=== PATIENT | male | born 1970 | race Two or more races ===

== ENCOUNTER 2016-08-26 18:57 | Emergency (ER) | payer MEDICAID ==
[~2016-08-26] VITALS: Ht 175.3 cm; Wt 95.3 kg
[~2016-08-26 18:57] MED LIST: IBUPROFEN600 MG ORAL; IBUPROFEN800 MG ORAL; NORCO 5-325 TA1 EACH ORAL; PREDNISONE20 MG ORAL; TRAMADOL HCL50 MG ORAL; VALIUM5 MG ORAL
[2016-08-26] MEDS ORDERED: Norco 7.5mg/325mg tab ORAL ONE (20:00)
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
[2016-08-26] MEDS ORDERED: IBUPROFEN600 MG ORAL (20:14)
[2016-08-26] MEDS ORDERED: BACITRACIN-P28.35 GM TP (20:14)
[2016-08-26] MEDS ORDERED: Bacitracin Oint UD TOPIC ONE (20:15)
[2016-08-26] MEDS ORDERED: NORCO 5-325 TA1 EACH ORAL (20:15)
[2016-08-26 20:43] VITALS: BP 153/93
--- NOTE | 2016-08-28 08:09 | Diagnostic Imaging Report ---
Indication: Pain Comparison: None Findings: Right rib series performed with 5 views. No acute fracture is identified. The right lung is clear. No pneumothorax or effusion identified. Impression: Negative right rib series
== END 2016-08-26 20:43 | disposition home or self-care (01) ==
LOC: EMR 19:17
DX: S20.211A Contusion of right front wall of thorax, initial encounter (principal); S50.811A Abrasion of right forearm, initial encounter; W05.1XXA Fall from non-moving nonmotorized scooter, initial encounter; Y92.9 Unspecified place or not applicable; Y99.8 Other external cause status
CPT/HCPCS: 99284

== ENCOUNTER 2016-11-22 20:41 | Inpatient (IN) | payer MEDICAID ==
[~2016-11-22] VITALS: Ht 177.8 cm; Wt 98.9 kg
[~2016-11-22 20:41] MED LIST changes: +BACITRACIN-P28.35 GM TP
[2016-11-22 21:00] VITALS: BP 146/97
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
[2016-11-22 21:44] LABS: BASOPHILS % (AUTO) 1.2 % (0.0-2.0); EOSINOPHILS % (AUTO) 1.8 % (0.0-3.0); LYMPHOCYTES % (AUTO) 26.2 % (20.0-45.0); MEAN CORPUSCULAR HEMOGLOBIN 29.3 PG (27.0-31.0); MEAN CORPUSCULAR HGB CONC 34.5 G/DL (32.0-36.0); MEAN CORPUSCULAR VOLUME 85 FL (80-99); MONOCYTES % (AUTO) 8.3 % (1.0-10.0); NEUTROPHILS % (AUTO) 62.6 % (45.0-75.0); PLATELET COUNT 153 K/UL (150-450); RED BLOOD COUNT 4.91 M/UL (4.70-6.10); RED CELL DISTRIBUTION WIDTH 12.2 % (11.6-14.8); WHITE BLOOD COUNT 7.8 K/UL (4.8-10.8)
[2016-11-22 22:01] LABS: PROTHROMBIN TIME 10.7 SEC (9.30-11.50)
[2016-11-22 22:07] LABS: TROPONIN I < 0.30 ng/mL (<=0.30)
[2016-11-22 22:10] LABS: ALANINE AMINOTRANSFERASE 15 U/L (3-41); ALBUMIN/GLOBULIN RATIO 1.6 (1.0-2.7); ANION GAP 14 (5-15); ASPARTATE AMINO TRANSFERASE 16 U/L (5-40); CALCIUM 8.7 mg/dL (8.6-10.2); CARBON DIOXIDE 24 mEQ/L (20-30); CHLORIDE 103 mEQ/L (98-107); CREATININE 0.9 mg/dL (0.7-1.2); GLOMERULAR FILTRATION RATE > 60 mL/min (>60); HEMOLYSIS 11; POTASSIUM 3.7 mEQ/L (3.4-4.9); SODIUM 141 mEQ/L (135-145)
[2016-11-22 22:20] LABS: CKMB 1.7 ng/mL (< 6.7)
[2016-11-22 23:25] VITALS: BP 125/72
[2016-11-22] MEDS ORDERED: Nitroglycerin Subl 0.4mg tab (Bottle Of 25) SL PRN (23:30)
[2016-11-22] MEDS ORDERED: Mylanta II UD 30ml ORAL PRN (23:30)
[2016-11-22] MEDS ORDERED: Milk of Magnesia 30ml Ud ORAL PRN (23:30)
[2016-11-22] MEDS ORDERED: Morphine Sulfate 2mg/ml Inj IVP PRN (23:30)
[2016-11-22] MEDS ORDERED: Morphine Sulfate 4mg/ml Inj IVP PRN (23:30)
[2016-11-22] MEDS ORDERED: Zolpidem 5mg tab ORAL PRN (23:30)
[2016-11-22] MEDS ORDERED: Miralax 17gm pkt ORAL PRN (23:30)
[2016-11-23] VITALS (7 sets, daily range): BP systolic 101–149; BP diastolic 67–86
[2016-11-23 07:16] LABS: EOSINOPHILS % (AUTO) 2.9 % (0.0-3.0); LYMPHOCYTES % (AUTO) 35.2 % (20.0-45.0); MEAN CORPUSCULAR HEMOGLOBIN 28.8 PG (27.0-31.0); MEAN CORPUSCULAR HGB CONC 33.5 G/DL (32.0-36.0); MEAN CORPUSCULAR VOLUME 86 FL (80-99); MEAN PLATELET VOLUME 9.5 FL (6.5-10.1); MONOCYTES % (AUTO) 7.9 % (1.0-10.0); NEUTROPHILS % (AUTO) 53.1 % (45.0-75.0); PLATELET COUNT 142 K/UL (150-450); RED BLOOD COUNT 4.99 M/UL (4.70-6.10); RED CELL DISTRIBUTION WIDTH 11.7 % (11.6-14.8); WHITE BLOOD COUNT 6.1 K/UL (4.8-10.8)
--- NOTE | 2016-11-23 07:51 | History and Physical ---
History of Present Illness General Date patient seen: Nov 23, 2016 Time patient seen: 07:51 Reason for Hospitalization: Chest Pain Present Illness HPI 46-year-old male who presented after increased chest pain which began approximately 40 minutes ago pain is described as a pressure type sensation. This was onset during exertion. Patient states he had similar chest pain 2 years ago and underwent stress test and cath at [facility] which was negative. Patient state he is former smoker--quit 2 years ago Patient denied changes to pain with position. Pain has now resolved. Allergies: Coded Allergies: No Known Allergies (Unverified , 01/31/13) Medication History Scheduled Bacitracin/Polymyxin B Sulfate (Bacitracin-Polymyxin Ointment), 1 APPLIC TP BID Ibuprofen* (Motrin*), 600 MG ORAL THREE TIMES A DAY Scheduled PRN Diazepam* (Valium*), 5 MG ORAL TID PRN for For Anxiety Hydrocodone Bit/Acetaminophen 5-325* (Hixson 5-325*), 1 TAB ORAL Q6H PRN for For Pain Hydrocodone Bit/Acetaminophen 5-325* (Hixson 5-325*), 1 TAB ORAL Q6H PRN for For Pain Ibuprofen* (Motrin*), 600 MG ORAL Q8H PRN for For Pain Tramadol Hcl* (Ultram*), 50 MG ORAL Q6H PRN for For Pain Patient History Healthcare decision maker Resuscitation status Full Code Advanced Directive on File No Past Medical/Surgical History Past Medical/Surgical History: (1) Chest pain Family History Family History: Patient reports no known family medical history. Social History Social History: (1) Former tobacco use Review of Systems Constitutional: Reports: no symptoms Eye: Reports: no symptoms ENT: Reports: no symptoms Respiratory: Reports: no symptoms Cardiovascular: Reports: chest pain Gastrointestinal: Reports: no symptoms Genitourinary: Reports: no symptoms Musculoskeletal: Reports: no symptoms Skin: Reports: no symptoms Psychiatric: Reports: no symptoms Neurological: Reports: no symptoms Endocrine: Reports: no symptoms Hematologic/Lymphatic: Reports: no symptoms Physical Exam Physical Exam Narrative General: alert, cooperative, no distress, appears stated age Head: normocephalic, without obvious abnormality, atraumatic Eyes: conjunctivae/corneas clear. PERRL, EOM's intact Throat: lips, mucosa, and tongue normal. MMM Neck: supple, symmetrical, trachea midline, and no JVD Lungs: clear to auscultation bilaterally Heart: regular rate and rhythm, S1, S2 normal, no murmur, click, rub or gallop Abdomen: soft, non-tender, non-distended, bowel sounds normal; no masses or organomegaly Extremities: extremities normal, atraumatic, no cyanosis or edema Pulses: 2+ and symmetric Skin: skin color, texture, turgor normal; no rashes or lesions Neurologic: grossly normal, no focal deficits Last 24 Hour Vital Signs Date Time Temp Pulse Resp B/P Pulse Ox O2 Delivery O2 Flow Rate FiO2 11/23/16 04:00 98.6 53 18 101/71 99 Room Air 11/23/16 04:00 45 11/23/16 00:00 97.2 53 18 140/77 99 Room Air 11/23/16 00:00 67 11/22/16 23:46 74 16 125/72 98 Room Air 11/22/16 23:25 97.1 74 16 125/72 98 Room Air 11/22/16 21:00 71 15 Room Air 11/22/16 21:00 99.0 63 15 146/97 97 Room Air 11/22/16 20:44 99.0 71 15 146/97 97 Room Air Intake and Output 11/22/16 11/23/16 19:00 07:00 Intake Total 400 ml Balance 400 ml Intake Oral 400 ml # Voids 2 Laboratory Tests Test 11/22/16 21:00 11/22/16 21:30 11/23/16 06:30 White Blood Count 7.8 K/UL (4.8-10.8) 6.1 K/UL (4.8-10.8) Red Blood Count 4.91 M/UL (4.70-6.10) 4.99 M/UL (4.70-6.10) Hemoglobin 14.4 G/DL (14.2-18.0) 14.4 G/DL (14.2-18.0) Hematocrit 41.8 % (42.0-52.0) L 42.9 % (42.0-52.0) Mean Corpuscular Volume 85 FL (80-99) 86 FL (80-99) Mean Corpuscular Hemoglobin 29.3 PG (27.0-31.0) 28.8 PG (27.0-31.0) Mean Corpuscular Hemoglobin Concent 34.5 G/DL (32.0-36.0) 33.5 G/DL (32.0-36.0) Red Cell Distribution Width 12.2 % (11.6-14.8) 11.7 % (11.6-14.8) Platelet Count 153 K/UL (150-450) 142 K/UL (150-450) L Mean Platelet Volume 10.0 FL (6.5-10.1) 9.5 FL (6.5-10.1) Neutrophils (%) (Auto) 62.6 % (45.0-75.0) 53.1 % (45.0-75.0) Lymphocytes (%) (Auto) 26.2 % (20.0-45.0) 35.2 % (20.0-45.0) Monocytes (%) (Auto) 8.3 % (1.0-10.0) 7.9 % (1.0-10.0) Eosinophils (%) (Auto) 1.8 % (0.0-3.0) 2.9 % (0.0-3.0) Basophils (%) (Auto) 1.2 % (0.0-2.0) 1.0 % (0.0-2.0) Prothrombin Time 10.7 SEC (9.30-11.50) Prothromb Time International Ratio 1.0 (0.9-1.1) Activated Partial Thromboplast Time 28 SEC (23-33) D-Dimer 121 ng/mL (<500) Sodium Level 141 mEQ/L (135-145) Pending Potassium Level 3.7 mEQ/L (3.4-4.9) Pending Chloride Level 103 mEQ/L (98-107) Pending Carbon Dioxide Level 24 mEQ/L (20-30) Pending Anion Gap 14 (5-15) Blood Urea Nitrogen 18 mg/dL (7-23) Pending Creatinine 0.9 mg/dL (0.7-1.2) Pending Estimat Glomerular Filtration Rate > 60 mL/min (>60) Pending Glucose Level 96 mg/dL (74-106) Pending Calcium Level 8.7 mg/dL (8.6-10.2) Pending Total Bilirubin 0.2 mg/dL (0.0-1.2) Aspartate Amino Transf (AST/SGOT) 16 U/L (5-40) Alanine Aminotransferase (ALT/SGPT) 15 U/L (3-41) Alkaline Phosphatase 42 U/L (40-129) Total Creatine Kinase 123 U/L (38-174) Creatine Kinase MB 1.7 ng/mL (< 6.7) Creatine Kinase MB Relative Index 1.3 Troponin I < 0.30 ng/mL (<=0.30) Pending Pro-B-Type Natriuretic Peptide 27 pg/mL (0-125) Total Protein 7.0 g/dL (6.6-8.7) Albumin 4.4 g/dL (3.5-5.2) Globulin 2.6 g/dL Albumin/Globulin Ratio 1.6 (1.0-2.7) Urine Opiates Screen Negative (NEGATIVE) Urine Barbiturates Screen Negative (NEGATIVE) Phencyclidine (PCP) Screen Negative (NEGATIVE) Urine Amphetamines Screen Negative (NEGATIVE) Urine Benzodiazepines Screen Negative (NEGATIVE) Urine Cocaine Screen Negative (NEGATIVE) Urine Marijuana (THC) Screen Negative (NEGATIVE) Hemoglobin A1c Pending Magnesium Level Pending Triglycerides Level Pending Cholesterol Level Pending LDL Cholesterol Pending HDL Cholesterol Pending Cholesterol/HDL Ratio Pending Thyroid Stimulating Hormone (TSH) Pending Height (Feet): 5 Height (Inches): 10.00 Weight (Pounds): 218 Medications Current Medications Medications (Trade) Dose Ordered Sig/Carlos Route PRN Reason Start Time Stop Time Status Last Admin Dose Admin Acetaminophen (Tylenol) 650 mg Q4H PRN ORAL Mild Pain (Pain Scale 1-3) 11/22/16 23:30 12/22/16 23:29 Al Hydroxide/Mg Hydroxide (Mylanta II) 30 ml Q6H PRN ORAL dyspepsia 11/22/16 23:30 12/22/16 23:29 Aspirin (ASA) 81 mg DAILY ORAL 11/23/16 09:00 12/23/16 08:59 Atorvastatin Calcium (Lipitor) 80 mg BEDTIME ORAL 11/23/16 21:00 12/23/16 20:59 Bisacodyl (Dulcolax) 10 mg DAILYPRN PRN RECTAL Constipation 11/22/16 23:30 12/22/16 23:29 Dextrose (Dextrose 50%) STAT PRN IV Hypoglycemia 11/22/16 23:30 12/22/16 23:29 Diphenhydramine HCl (Benadryl) 25 mg Q6H PRN ORAL Itching/Pruritis 11/22/16 23:30 12/22/16 23:29 Docusate Sodium (Colace) 100 mg EVERY 12 HOURS ORAL 11/23/16 09:00 12/23/16 08:59 Heparin Sodium (Porcine) (Heparin 5000 units/ml) 5,000 units EVERY 12 HOURS SUBQ 11/23/16 09:00 12/23/16 08:59 Magnesium Hydroxide (Mom) 30 ml HSPRN PRN ORAL Constipation 11/22/16 23:30 12/22/16 23:29 Morphine Sulfate (Morphine Sulfate) 2 mg Q4H PRN IVP Moderate Pain (Pain Scale 4-6) 11/22/16 23:30 11/29/16 23:29 Morphine Sulfate (Morphine Sulfate) 4 mg Q4H PRN IVP Severe Pain (Pain Scale 7-10) 11/22/16 23:30 11/29/16 23:29 Nitroglycerin (Ntg) 0.4 mg Q5M PRN SL Prn Chest Pain 11/22/16 23:30 12/22/16 23:29 Ondansetron HCl (Zofran) 4 mg Q6H PRN IVP Nausea & Vomiting 11/22/16 23:30 12/22/16 23:29 Polyethylene Glycol (Miralax) 17 gm DAILYPRN PRN ORAL Constipation 11/22/16 23:30 12/22/16 23:29 Zolpidem Tartrate (Ambien) 5 mg DAILYPRN PRN ORAL Insomnia 11/22/16 23:30 12/22/16 23:29 Assessment/Plan Problem List: (1) Chest pain ICD Codes: R07.9 - Chest pain, unspecified SNOMED: 74376880 (2) Bradycardia ICD Codes: R00.1 - Bradycardia, unspecified SNOMED: 73622955 Status: stable Assessment/Plan Admit to tele Cardiology consulted Trend trop/EKG Check TTE Consider inpatient vs outpatient stress test per cardiology Check TSH, A1C, lipid panel Pain control Supportive care DVT ppx FULL CODE Dante Pineda M.D. Nov 23, 2016 07:51
[2016-11-23 08:01] LABS: TROPONIN I < 0.30 ng/mL (<=0.30)
[2016-11-23 08:03] LABS: ANION GAP 10 (5-15); CALCIUM 8.6 mg/dL (8.6-10.2); CARBON DIOXIDE 27 mEQ/L (20-30); CHLORIDE 102 mEQ/L (98-107); CHOLESTEROL 181 mg/dL (< 200); CHOLESTEROL/HDL RATIO 5.7 (3.3-4.4); CREATININE 0.8 mg/dL (0.7-1.2); GLOMERULAR FILTRATION RATE > 60 mL/min (>60); HEMOLYSIS 16; LDL CHOLESTEROL (CALC.) 123 mg/dL (60-99); MAGNESIUM 2.1 mg/dL (1.7-2.5); POTASSIUM 3.6 mEQ/L (3.4-4.9); SODIUM 139 mEQ/L (135-145)
[2016-11-23] MEDS: Aspirin Baby 81mg ORAL SCH (08:41)
[2016-11-23] MEDS: Docusate 100mg cap ORAL SCH ×2 (08:41→21:48)
[2016-11-23] MEDS: Heparin 5000 units/ml inj SUBQ SCH ×2 (08:42→21:00)
[2016-11-23 10:43] LABS: TROPONIN I < 0.30 ng/mL (<=0.30)
--- NOTE | 2016-11-23 10:43 | Diagnostic Imaging Report ---
Indication: Dyspnea Comparison: None A single view chest radiograph was obtained. Findings: Cardiomediastinal appearance is within normal limits for age. Pulmonary vascularity is appropriate. The diaphragmatic contour is smooth and costophrenic angles are sharp. No pleural effusions are identified. The bones are unremarkable. Impression: No acute findings
--- NOTE | 2016-11-23 16:34 | Cardiac Electrophysiology PN ---
Subjective Subjective [id number]. Stress test in am. Cath at [facility] 2 years ago was negative. Objective Last 24 Hour Vital Signs Date Time Temp Pulse Resp B/P Pulse Ox O2 Delivery O2 Flow Rate FiO2 11/23/16 16:00 97.5 55 18 120/68 98 Room Air 11/23/16 12:02 97.9 57 18 122/67 98 Room Air 11/23/16 08:00 98.2 61 18 111/75 99 Room Air 11/23/16 04:00 98.6 53 18 101/71 99 Room Air 11/23/16 04:00 45 11/23/16 00:00 97.2 53 18 140/77 99 Room Air 11/23/16 00:00 67 11/22/16 23:46 74 16 125/72 98 Room Air 11/22/16 23:25 97.1 74 16 125/72 98 Room Air 11/22/16 21:00 71 15 Room Air 11/22/16 21:00 99.0 63 15 146/97 97 Room Air 11/22/16 20:44 99.0 71 15 146/97 97 Room Air Intake and Output 11/22/16 11/23/16 19:00 07:00 Intake Total 400 ml Balance 400 ml Intake Oral 400 ml # Voids 2 Laboratory Tests Test 11/22/16 21:00 11/22/16 21:30 11/23/16 06:30 11/23/16 10:00 White Blood Count 7.8 K/UL (4.8-10.8) 6.1 K/UL (4.8-10.8) Red Blood Count 4.91 M/UL (4.70-6.10) 4.99 M/UL (4.70-6.10) Hemoglobin 14.4 G/DL (14.2-18.0) 14.4 G/DL (14.2-18.0) Hematocrit 41.8 % (42.0-52.0) L 42.9 % (42.0-52.0) Mean Corpuscular Volume 85 FL (80-99) 86 FL (80-99) Mean Corpuscular Hemoglobin 29.3 PG (27.0-31.0) 28.8 PG (27.0-31.0) Mean Corpuscular Hemoglobin Concent 34.5 G/DL (32.0-36.0) 33.5 G/DL (32.0-36.0) Red Cell Distribution Width 12.2 % (11.6-14.8) 11.7 % (11.6-14.8) Platelet Count 153 K/UL (150-450) 142 K/UL (150-450) L Mean Platelet Volume 10.0 FL (6.5-10.1) 9.5 FL (6.5-10.1) Neutrophils (%) (Auto) 62.6 % (45.0-75.0) 53.1 % (45.0-75.0) Lymphocytes (%) (Auto) 26.2 % (20.0-45.0) 35.2 % (20.0-45.0) Monocytes (%) (Auto) 8.3 % (1.0-10.0) 7.9 % (1.0-10.0) Eosinophils (%) (Auto) 1.8 % (0.0-3.0) 2.9 % (0.0-3.0) Basophils (%) (Auto) 1.2 % (0.0-2.0) 1.0 % (0.0-2.0) Prothrombin Time 10.7 SEC (9.30-11.50) Prothromb Time International Ratio 1.0 (0.9-1.1) Activated Partial Thromboplast Time 28 SEC (23-33) D-Dimer 121 ng/mL (<500) Sodium Level 141 mEQ/L (135-145) 139 mEQ/L (135-145) Potassium Level 3.7 mEQ/L (3.4-4.9) 3.6 mEQ/L (3.4-4.9) Chloride Level 103 mEQ/L (98-107) 102 mEQ/L (98-107) Carbon Dioxide Level 24 mEQ/L (20-30) 27 mEQ/L (20-30) Anion Gap 14 (5-15) 10 (5-15) Blood Urea Nitrogen 18 mg/dL (7-23) 13 mg/dL (7-23) Creatinine 0.9 mg/dL (0.7-1.2) 0.8 mg/dL (0.7-1.2) Estimat Glomerular Filtration Rate > 60 mL/min (>60) > 60 mL/min (>60) Glucose Level 96 mg/dL (74-106) 100 mg/dL (74-106) Calcium Level 8.7 mg/dL (8.6-10.2) 8.6 mg/dL (8.6-10.2) Total Bilirubin 0.2 mg/dL (0.0-1.2) Aspartate Amino Transf (AST/SGOT) 16 U/L (5-40) Alanine Aminotransferase (ALT/SGPT) 15 U/L (3-41) Alkaline Phosphatase 42 U/L (40-129) Total Creatine Kinase 123 U/L (38-174) Creatine Kinase MB 1.7 ng/mL (< 6.7) Creatine Kinase MB Relative Index 1.3 Troponin I < 0.30 ng/mL (<=0.30) < 0.30 ng/mL (<=0.30) < 0.30 ng/mL (<=0.30) Pro-B-Type Natriuretic Peptide 27 pg/mL (0-125) Total Protein 7.0 g/dL (6.6-8.7) Albumin 4.4 g/dL (3.5-5.2) Globulin 2.6 g/dL Albumin/Globulin Ratio 1.6 (1.0-2.7) Urine Opiates Screen Negative (NEGATIVE) Urine Barbiturates Screen Negative (NEGATIVE) Phencyclidine (PCP) Screen Negative (NEGATIVE) Urine Amphetamines Screen Negative (NEGATIVE) Urine Benzodiazepines Screen Negative (NEGATIVE) Urine Cocaine Screen Negative (NEGATIVE) Urine Marijuana (THC) Screen Negative (NEGATIVE) Hemoglobin A1c 5.0 % (< 6.0) Magnesium Level 2.1 mg/dL (1.7-2.5) Triglycerides Level 129 mg/dL (< 150) Cholesterol Level 181 mg/dL (< 200) LDL Cholesterol 123 mg/dL (60-99) H HDL Cholesterol 32 mg/dL (> 60) Cholesterol/HDL Ratio 5.7 (3.3-4.4) H Thyroid Stimulating Hormone (TSH) 2.380 uIU/mL (0.300-4.500) SUNNY ORTEGA Nov 23, 2016 16:34
[2016-11-23] MEDS ORDERED: Atorvastatin 80mg tab ORAL SCH (21:00)
--- NOTE | 2016-11-24 02:15 | Consultation ---
DATE OF CONSULTATION: 11/23/2016 CARDIOLOGY CONSULTATION CONSULTING PHYSICIAN: José Henao M.D. REFERRING PHYSICIAN: Nahed Verdin M.D. REASON FOR CONSULTATION: Chest pain. HISTORY OF PRESENT ILLNESS: The patient is a 46-year-old gentleman with history of troponin elevation about two years ago for which he underwent cardiac catheterization at [facility] from his wrist that reportedly was negative. The patient does not have any further cardiology followup. The patient came to the emergency room for an episode of chest pain that was severe for him. The patient's EKG however did not show any acute ischemic changes and troponin was negative. He is disease free. Cardiology consultation was obtained for further evaluation and management. REVIEW OF SYSTEMS: Review of systems was performed and was negative other than what was mentioned in the history of present illness. PAST MEDICAL HISTORY: As mentioned above. FAMILY HISTORY: Noncontributory. SOCIAL HISTORY: Does not smoke or drink alcohol. PHYSICAL EXAMINATION: VITAL SIGNS: Blood pressure is 120/60, pulse is 65, respirations 18, and he is afebrile. HEAD AND NECK: Showed no JVD or carotid bruits. LUNGS: Clear. CARDIOVASCULAR: Shows regular S1 and S2. Mildly bradycardic. ABDOMEN: Soft. EXTREMITIES: No pitting edema. LABORATORY DATA: Showed white count of 6.1, hemoglobin of 14.4, hematocrit 43, and platelet count 142,000. Sodium is 139, potassium 3.6, BUN of 13.8, and glucose of 100. Troponin is negative x3. ASSESSMENT AND PLAN: 1. Atypical chest pain. EKG is negative. The patient was ruled out for myocardial infarction. His D-dimer is also negative making highly unlikely. We will get an echocardiogram and schedule the patient for a treadmill stress test in the morning. 2. Mild bradycardia. We will watch the patient on telemetry. Check thyroid function test. 3. The patient has hyperlipidemia, on Lipitor. Thank very much, Dr. Verdin, for allowing me to participate in the care of this patient. Please do not hesitate to contact me for any questions regarding my evaluation. José Henao M.D. DR: Donna JOB#: [id number] CC:
[2016-11-24 08:00] VITALS: BP 120/68
[2016-11-24] MEDS: Aspirin Baby 81mg ORAL SCH (08:51)
[2016-11-24] MEDS: Docusate 100mg cap ORAL SCH (08:51)
[2016-11-24] MEDS: Heparin 5000 units/ml inj SUBQ SCH (08:52)
[2016-11-24] MEDS ORDERED: ATORVASTATIN CA40 MG ORAL (10:52)
[2016-11-24] MEDS ORDERED: Adenosine Inj IVP ONE (12:20)
--- NOTE | 2016-11-24 14:59 | Diagnostic Imaging Report ---
Indications: Chest pain Technique: Single day single isotope protocol utilized. Initially, resting images obtained using IV administration 10.2 millicuries 99M technetium Myoview. Subsequently, patient underwent adenosine stress testing. See cardiology report for details. During adenosine infusion, IV administration 32.8 mCi 99 M technetium Myoview. SPECT and planar images obtained. SPECT images gated to 8 phases of the cardiac cycle were also obtained, and reformatted into cine images for evaluation of ejection fraction. Comparison: None Findings: Per cardiology report, patient experienced dizziness and shortness of breath. Per cardiology report, resting EKG demonstrates normal sinus rhythm no ST-T wave changes were noted during infusion. Imaging demonstrates no fixed nor reversible post stress perfusion defect.. Calculated post stress ejection fraction % 70. No evidence of focal wall motion abnormality Impression: Nonischemic clinical response to pharmacologic stress, per cardiology report Nonischemic electrocardiographic response to pharmacologic stress, per cardiology report No imaging findings to suggest ischemia, at level of stress achieved. Calculated post stress ejection fraction 70%
--- NOTE | 2016-11-24 17:20 | Cardiac Electrophysiology PN ---
Assessment/Plan Assessment/Plan 1. Atypical chest pain. EKG is negative. The patient was ruled out for myocardial infarction. His D-dimer is also negative. Echocardiogram showed EF 55%. Adenosine Cardiolite showed no ischemia. 2. Mild bradycardia. Resolved 3. Hyperlipidemia, on Lipitor. BANDAR RN OK to DC from cardiac stand point Subjective Subjective Patient signed out AMA but reported back to his room an hour later. Comfortbale in NAD. Nuclear stress test was negative today. Objective Last 24 Hour Vital Signs Date Time Temp Pulse Resp B/P Pulse Ox O2 Delivery O2 Flow Rate FiO2 11/24/16 08:00 97.5 99 19 120/68 99 Room Air 11/24/16 04:00 53 11/24/16 00:00 68 11/23/16 23:29 97.3 79 20 149/86 97 Room Air 11/23/16 20:10 96.3 64 20 122/67 99 Room Air 11/23/16 20:00 63 Intake and Output 11/23/16 11/24/16 19:00 07:00 Intake Total 1300 ml Balance 1300 ml Intake Oral 1300 ml # Voids 4 3 Objective HEAD AND NECK: Showed no JVD or carotid bruits. LUNGS: Clear. CARDIOVASCULAR: Shows regular S1 and S2. Mildly bradycardic. ABDOMEN: Soft. EXTREMITIES: No pitting edema. SUNNY ORTEGA Nov 24, 2016 17:20
--- NOTE | 2016-11-27 14:02 | Cardiology Report ---
APPROVED REPORT EXAM: Two-dimensional and M-mode echocardiogram with Doppler and color Doppler. INDICATION Chest Pain M-Mode DIMENSIONS IVSd1.1 (0.7-1.1cm)Left Atrium (MM)3.8 (1.6-4.0cm) LVDd4.2 (3.5-5.6cm)Aortic Root3.3 (2.0-3.7cm) PWd1.3 (0.7-1.1cm)Aortic Cusp Exc.2.0 (1.5-2.0cm) LVDs1.8 (2.5-4.0cm) PWs1.7 cm Normal left ventricular chamber size, systolic function and wall motion. Left ventricular ejection fraction estimated to be 55 %. No evidence of ventricular hypertrophy. No evidence of pericardial fat or effusion. All other cardiac chamber sizes are within normal limits. Focal aortic valve sclerosis with adequate cusp excursion. Thickened mitral valve leaflets with normal excursion. Mitral annulus and aortic root calcification. Pulmonic valve not well visualized. Normal tricuspid valve structure. IVC dilated at 1.7 cm with physiologic collapse. A color flow and spectral Doppler study was performed and revealed: No aortic regurgitation. No mitral regurgitation. Mitral inflow velocities indicates normal left ventricular diastolic function. No tricuspid regurgitation. No pulmonic regurgitation present.
--- NOTE | 2016-11-28 17:18 | Discharge Summary ---
Discharge Summary Hospital Course Date of Admission Nov 22, 2016 at 22:25 Date of Discharge Nov 24, 2016 at 15:20 Admitting Diagnosis chest pain r/o ACS Reason for Hospitalization: r/o ACS HPI 46-year-old male who presented after increased chest pain which began approximately 40 minutes ago pain is described as a pressure type sensation. This was onset during exertion. Patient states he had similar chest pain 2 years ago and underwent stress test and cath at [facility] which was negative. Patient state he is former smoker--quit 2 years ago Patient denied changes to pain with position. Pain has now resolved. Consultations Cardiology Hospital Course P was admitted to [facility] and ruled out for ACS with serial trop/EKG. Pt was seen by cardiology. Stress test unremarkable. Pt was discharged home w/ outpatient f/ u. Discharge Medications New Medications: Atorvastatin Calcium* (Atorvastatin Calcium*) 40 Mg Tablet 40 MG ORAL BEDTIME for 30 Days, TAB Continued Medications: Bacitracin/Polymyxin B Sulfate (Bacitracin-Polymyxin Ointment) 28.35 Gm Oint...g. 1 APPLIC TP BID, #28.3 GM Hydrocodone Bit/Acetaminophen 5-325* ([place] 5-325*) 1 Each Tablet 1 TAB ORAL Q6H PRN for For Pain, #2 TAB 0 Refills Tramadol Hcl* (Ultram*) 50 Mg Tablet 50 MG ORAL Q6H PRN for For Pain, #30 TAB 0 Refills Discontinued Medications: Hydrocodone Bit/Acetaminophen 5-325* (Lang[place]ne 5-325*) 1 Each Tablet 1 TAB ORAL Q6H PRN for For Pain, #20 TAB Ibuprofen* (Motrin*) 600 Mg Tablet 600 MG ORAL Q8H PRN for For Pain, #30 TAB Ibuprofen* (Motrin*) 600 Mg Tablet 600 MG ORAL THREE TIMES A DAY, #24 TAB 0 Refills Discharge Condition Upon Discharge: stable Discharge Disposition Patient was discharged to Home (01) Discharge Diagnoses: (1) HLD (hyperlipidemia) (2) Chest pain, atypical Dante Pineda M.D. Nov 28, 2016 17:18
--- NOTE | 2016-11-28 19:07 | Cardiology Report ---
APPROVED REPORT EKG Measurement Heart [id number] Normal sinus rhythm Normal ECG
== END 2016-11-24 15:20 | disposition home or self-care (01) | DRG 203 ==
LOC: EMR 21:25 → 2E 22:25 → EDBEDREQ 22:42
DX: R07.89 Other chest pain (principal); R00.1 Bradycardia, unspecified; E78.5 Hyperlipidemia, unspecified; Z87.891 Personal history of nicotine dependence
CPT/HCPCS: 36415; 71010; 78452; 80048; 80053; 80061; 80300; 82550; 82553; 83036; 83735; 83880; 84443; 84484; 85025; 85379; 85610; 85730; 93005; 93017; 93306

== ENCOUNTER 2017-12-04 19:48 | Emergency (ER) | payer MEDICAID ==
[~2017-12-04] VITALS: Ht 177.8 cm; Wt 104.3 kg
[~2017-12-04 19:48] MED LIST changes: +ATORVASTATIN CA40 MG ORAL
[2017-12-04 20:16] VITALS: BP 156/95
[2017-12-04] MEDS ORDERED: CORTISPORIN EAR10 ML RIGHT EAR (20:35)
--- NOTE | 2017-12-04 20:35 | Emergency Room Report ---
History of Present Illness General Chief Complaint: Earache Source: Patient Present Illness HPI 47-year-old male patient presents ER complaining of earache 1 day. Reports right ear pain 1 day. Reports went swimming recently a few days ago. Denies fever, chest pain, shortness of breath. Denies Similar symptoms. Denies decreased hearing. Denies sore throat, cough, chest pain. Allergies: Coded Allergies: No Known Allergies (Unverified , 01/31/13) Patient History Past Medical History: see triage record Reviewed Nursing Documentation: PMH: Agreed; PSxH: Agreed Nursing Documentation-PMH Past Medical History: No History, Except For Hx Cardiac Problems: Yes Review of Systems All Other Systems: negative except mentioned in HPI Physical Exam Vital Signs Date Time Temp Pulse Resp B/P (MAP) Pulse Ox O2 Delivery O2 Flow Rate FiO2 12/04/17 19:57 98.3 65 18 156/95 94 Room Air 98.2 Sp02 EP Interpretation: reviewed, normal General Appearance: well appearing, no apparent distress, alert, GCS 15, non- toxic Head: normocephalic, atraumatic Eyes: bilateral eye normal inspection, bilateral eye PERRL ENT: hearing grossly normal, normal pharynx, no angioedema, normal voice, TMs + canals normal - left ear, uvula midline, moist mucus membranes, other - right ear canal erythematous and edematous, TM normal, no perforation, nonerythematous , no effusion Neck: full range of motion Respiratory: lungs clear, normal breath sounds, no rhonchi, no respiratory distress, no accessory muscle use, no wheezing, speaking full sentences Cardiovascular #1: regular rate, rhythm, no edema Musculoskeletal: back normal, digits/nails normal, gait/station normal, normal range of motion, non-tender Neurologic: alert, oriented x3, responsive, motor strength/tone normal, sensory intact Skin: no rash Lymphatic: no adenopathy Medical Decision Making PA Attestation Dr. Morris is my supervising Physician whom patient management has been discussed with. Diagnostic Impression: Primary Impression: Otitis externa ER Course Pt presents to ED c/o ear pain. DDX considered but are not limited to rhinitis, sinusitis, otitis media, otitis externa, cellulitis, mastoiditis, cerumen impaction. Low suspicion for mastoiditis, no swelling or erythema noted posterior to ear, no TTP. VITAL SIGNS are WNL, patient is afebrile. ER course: Physical exam consistent with obvious otitis externa of the right ear. TM visible, does not need ear wick placement. Will provide eardrops. Avoid swimming. Do not use Q-tips. follow-up with PCP and discuss referral to ENT. DISCHARGE: -Rx provided for Neomycin/polmyxin B Patient able to answer questions. Patient is hemodynamically stable and ready for discharge to home. At this time pt is stable for d/c to home. Patient to take medications as instructed Will provide with patient care instructions and any necessary prescriptions. Care plan and follow-up instructions provided. Patient instructed to follow-up with primary care in 3 - 5 days. Patient provided with list of clinics to establish care if unable to contact current PCP. Patient questions asked and answered. ER precautions given. Patient instructed to return to ER immediately for any new or worsening of symptoms including but not limited to increasing SOB, persistent fever. - Please note that this Emergency Department Report was dictated using pluriSelectline crewman technology software, occasionally this can lead to erroneous entry secondary to interpretation by the dictation equipment. Last Vital Signs Date Time Temp Pulse Resp B/P (MAP) Pulse Ox O2 Delivery O2 Flow Rate FiO2 12/04/17 20:16 98.2 87 18 156/95 94 Room Air 98.2 Disposition: HOME, SELF-CARE Condition: Stable Scripts Neomycin/Polymyxin B Sulf/Hc* (CORTISPORIN EAR SOLUTION*) 10 Ml Solution 3 DROP RIGHT EAR QID, #10 ML 0 Refills Prov: Justino Kumar 12/04/17 Patient Instructions: Otitis Externa, [id number] Additional Instructions: Followup with primary care provider in 3 -5 days. Discuss referral to ENT. Take medications as directed. Do not use Q-tips. Avoid swimming. Patient questions asked and answered. ER precautions given, patient instructed to return to ER immediately for any new or worsening of symptoms. Justino Kumar Dec 04, 2017 20:35
[2017-12-04 20:55] VITALS: BP 145/78
== END 2017-12-04 20:55 | disposition home or self-care (01) ==
LOC: EMR 20:42
DX: H60.91 Unspecified otitis externa, right ear (principal)
CPT/HCPCS: 99283

== ENCOUNTER 2018-01-01 20:34 | Emergency (ER) | payer MEDICAID ==
[~2018-01-01] VITALS: Ht 177.8 cm; Wt 104.3 kg
[~2018-01-01 20:34] MED LIST changes: +CORTISPORIN EAR10 ML RIGHT EAR
[2018-01-01 20:39] VITALS: BP 145/88
--- NOTE | 2018-01-01 20:57 | Emergency Room Report ---
History of Present Illness General Chief Complaint: Earache Source: Patient Present Illness HPI Patient is a 47-year-old male who presented after increased left-sided earache. Patient reports having increased sharp pain to the left ear. Patient recently been treated for otitis externa. He had been using Cortisporin otic the with minimal improvement. Patient denied any fever. He denied any vomiting. Allergies: Coded Allergies: No Known Allergies (Unverified , 01/31/13) Patient History Reviewed Nursing Documentation: PMH: Agreed; PSxH: Agreed Nursing Documentation-PMH Hx Cardiac Problems: Yes Review of Systems All Other Systems: negative except mentioned in HPI Physical Exam Vital Signs Date Time Temp Pulse Resp B/P (MAP) Pulse Ox O2 Delivery O2 Flow Rate FiO2 01/01/18 20:38 98.1 80 18 145/88 94 Room Air 98.1 General Appearance: well appearing, no apparent distress, alert, GCS 15, non- toxic Head: normocephalic, atraumatic ENT: hearing grossly normal, normal voice, other - left ear external canal swelling Neck: full range of motion, supple Respiratory: normal inspection, chest non-tender, lungs clear, normal breath sounds, no respiratory distress, speaking full sentences Cardiovascular #1: normal inspection Gastrointestinal: normal inspection, normal bowel sounds, non tender, soft Musculoskeletal: normal inspection, back normal, no calf tenderness Neurologic: normal inspection, alert, oriented x3, responsive, normal gait Psychiatric: mood/affect normal Skin: no rash Medical Decision Making Diagnostic Impression: Primary Impression: Otitis externa ER Course Patient presented for ear pain. Differential diagnosis included was not limited to otitis media, malignant otitis externa, foreign body, cellulitis, mastoiditis, carotid dissection, myocardial infarction among others. the patient presented with otitis externa. The patient is advised to follow up with primary care doctor in 1-2 days. Patient is advised to return if any worsening condition or if any changes in status that are concerning. This report is dictated with Kabbee billet examiner software which may occasionally lead to discrepancies related to use of this software. Last Vital Signs Date Time Temp Pulse Resp B/P (MAP) Pulse Ox O2 Delivery O2 Flow Rate FiO2 01/01/18 20:39 98.1 87 18 145/88 94 Room Air 98.1 Status: improved Disposition: HOME, SELF-CARE Condition: Stable Patient Instructions: Otitis Externa, [id number] Erich Belle MD Jan 01, 2018 20:57
[2018-01-01] MEDS ORDERED: OFLOXACIN5 ML OT (20:58)
[2018-01-01 21:05] VITALS: BP 145/88
== END 2018-01-01 21:10 | disposition home or self-care (01) ==
LOC: EMR 21:08
DX: H60.92 Unspecified otitis externa, left ear (principal)
CPT/HCPCS: 99282

== ENCOUNTER 2018-05-22 04:17 | Emergency (ER) | payer MEDICAID ==
[~2018-05-22] VITALS: Ht 175.3 cm; Wt 103.0 kg
[~2018-05-22 04:17] MED LIST changes: +OFLOXACIN5 ML OT
[2018-05-22] MEDS ORDERED: NKM (04:25)
--- NOTE | 2018-05-22 04:34 | NUR ---
ED Nurse Note: Pt walked in ER and c/o chest pressure x 3days. Pt is AO x 4times, VSS, on room air no distress. ERMS seen Pt at bedside.
[2018-05-22 04:38] VITALS: BP 138/79
[2018-05-22] MEDS ORDERED: Aspirin Baby 81mg ORAL ONE (04:45)
--- NOTE | 2018-05-22 04:45 | Emergency Room Report ---
History of Present Illness General Chief Complaint: Chest Pain Source: Patient, Medical Record Present Illness HPI This is a 48-year-old male with a history of high blood pressure. He presents with chief complaint of lightheadedness and chest pain. Onset for last 2 days. He said he is under a lot of stress. He is currently in the middle of a divorce. Said he hasn't slept well. He felt lightheaded. Nothing made it better. Nothing made it worse. He has some light pressure in his chest. He was admitted here in 2017 and had a negative echocardiogram. No pain. No radiation. Nothing made it better. Nothing made it worse. No diaphoresis. No exertional component. Allergies: Coded Allergies: No Known Allergies (Unverified , 01/31/13) Patient History Past Medical History: see triage record, old chart reviewed, HTN Past Surgical History: other Pertinent Family History: none Social History: Denies: smoking Immunizations: other Reviewed Nursing Documentation: PMH: Agreed; PSxH: Agreed Nursing Documentation-PMH Hx Cardiac Problems: Yes - mini heart attack 2016 Hx Hypertension: Yes Review of Systems Eye: Denies: eye pain, blurred vision ENT: Denies: ear pain, nose congestion, throat swelling Respiratory: Denies: cough, shortness of breath Cardiovascular: Reports: chest pain; Denies: palpitations Gastrointestinal: Denies: abdominal pain, diarrhea, nausea, vomiting Musculoskeletal: Denies: back pain, joint pain Skin: Denies: rash Neurological: Denies: headache, numbness Endocrine: Denies: increased thirst, increased urine Hematologic/Lymphatic: Denies: easy bruising All Other Systems: negative except mentioned in HPI Physical Exam Vital Signs Date Time Temp Pulse Resp B/P (MAP) Pulse Ox O2 Delivery O2 Flow Rate FiO2 05/22/18 04:20 98.1 74 16 156/95 97 Room Air vitals with high blood pressure Sp02 EP Interpretation: reviewed, normal General Appearance: well appearing, no apparent distress, alert Head: normocephalic, atraumatic Eyes: bilateral eye PERRL, bilateral eye EOMI ENT: hearing grossly normal, normal pharynx Neck: full range of motion, supple, no meningismus Respiratory: chest non-tender, lungs clear, normal breath sounds Cardiovascular #1: regular rate, rhythm, no murmur Gastrointestinal: normal bowel sounds, non tender, no mass, no organomegaly, no bruit, non-distended Musculoskeletal: back normal, gait/station normal, normal range of motion Psychiatric: mood/affect normal Skin: warm/dry Medical Decision Making Diagnostic Impression: Primary Impression: Chest pain, atypical Additional Impression: Acute stress reaction ER Course Patient with atypical chest pain. No evidence of ACS, PE, dissection. Otherwise low risk. His EKG is normal. If Labs are normal we'll discharge home. EKG Diagnostic Results Rate: normal Rhythm: NSR ST Segments: no acute changes ASA given to the pt in ED: Yes Rhythm Strip Diag. Results EP Interpretation: yes Rate: 67 Rhythm: NSR, no PVC's, no ectopy Chest X-Ray Diagnostic Results Chest X-Ray Diagnostic Results : Chest X-Ray Ordered: Yes # of Views/Limited/Complete: 1 View Indication: Chest Pain EP Interpretation: Yes Interpretation: no consolidation, no effusion, no pneumothorax, no acute cardiopulmonary disease Impression: No acute disease Electronically Signed by: Wero Heck MD Last Vital Signs Date Time Temp Pulse Resp B/P (MAP) Pulse Ox O2 Delivery O2 Flow Rate FiO2 05/22/18 04:38 98.0 72 17 138/79 98 Room Air Status: improved Disposition: HOME, SELF-CARE Condition: Stable Referrals: NON PHYSICIAN (PCP) Patient Instructions: Nonspecific Chest Pain Additional Instructions: Follow-up with your doctor in 7 days. Return if symptom worsen. Wero Heck MD May 22, 2018 04:45
--- NOTE | 2018-05-22 04:50 | NUR ---
ED Nurse Note: Urine and blood sample sent to lab.
[2018-05-22 05:13] LABS: EOSINOPHILS % (AUTO) 3.1 % (0.0-3.0); HEMATOCRIT 44.7 % (42.0-52.0); HEMOGLOBIN 15.5 G/DL (14.2-18.0); LYMPHOCYTES % (AUTO) 26.7 % (20.0-45.0); MEAN CORPUSCULAR VOLUME 82 FL (80-99); MONOCYTES % (AUTO) 6.7 % (1.0-10.0); NEUTROPHILS % (AUTO) 62.5 % (45.0-75.0); PLATELET COUNT 147 K/UL (150-450); RED BLOOD COUNT 5.48 M/UL (4.70-6.10)
--- NOTE | 2018-05-22 05:14 | NUR ---
ED Nurse Note: X ray at bedside.
[2018-05-22 05:27] LABS: ANION GAP 11 mmol/L (5-15); BLOOD UREA NITROGEN 14 mg/dL (7-18); CALCIUM 8.9 MG/DL (8.5-10.1); CARBON DIOXIDE 25 MMOL/L (21-32); CHLORIDE 103 MMOL/L (98-107); CREATININE 1.2 MG/DL (0.55-1.30); POTASSIUM 3.3 MMOL/L (3.5-5.1); SODIUM 139 MMOL/L (136-145)
[2018-05-22 05:36] LABS: APPEARANCE,URINE CLEAR; COLOR,URINE YELLOW; PH,URINE 6 (4.5-8.0); PROTEIN,URINE NEGATIVE (NEGATIVE)
[2018-05-22 05:37] LABS: BILIRUBIN, URINE NEGATIVE (NEGATIVE); GLUCOSE, URINE (UA) NEGATIVE (NEGATIVE); KETONES,URINE NEGATIVE (NEGATIVE); LEUKOCYTE ESTERASE ,URINE NEGATIVE (NEGATIVE); NITRITE,URINE NEGATIVE (NEGATIVE); UROBILINOGEN,URINE NORMAL MG/DL (0.0-1.0)
[2018-05-22 05:41] LABS: ALANINE AMINOTRANSFERASE 33 U/L (12-78); ALBUMIN 3.8 G/DL (3.4-5.0); ALBUMIN/GLOBULIN RATIO 1.2 (1.0-2.7); ALKALINE PHOSPHATASE 43 U/L (46-116); ASPARTATE AMINO TRANSFERASE 15 U/L (15-37); BILIRUBIN,TOTAL 0.6 MG/DL (0.2-1.0); CKMB 0.9 NG/ML (0.0-3.6); CREATINE KINASE 94 U/L (26-308)
[2018-05-22 05:54] VITALS: BP 130/75
--- NOTE | 2018-05-22 05:55 | NUR ---
ED Nurse Note: Pt cleared DC by ERMKoko. Pt is AO x 4times, VSS, on room air no distress. DC instruction given to Pt, Pt understood well. ID bend and IV site removed. Pt walked out unit with steady gait.
[2018-05-22 05:56] VITALS: BP 130/75
--- NOTE | 2018-05-22 12:49 | Diagnostic Imaging Report ---
Indication: Chest pain Comparison: November 22, 2016 A single view chest radiograph was obtained. Findings: Cardiomediastinal appearance is within normal limits for age. The lungs are clear. Pulmonary vascularity is appropriate. The diaphragmatic contour is smooth and costophrenic angles are sharp. No pleural effusions are identified. The bones are unremarkable. Impression: No acute findings
--- NOTE | 2018-05-22 17:19 | Cardiology Report ---
APPROVED REPORT EKG Measurement Heart [id number] [place] [id number] Normal sinus rhythm Normal ECG
== END 2018-05-22 05:57 | disposition home or self-care (01) ==
LOC: EMR 04:39
DX: F43.0 Acute stress reaction (principal); R07.89 Other chest pain; I10 Essential (primary) hypertension
CPT/HCPCS: 36415; 71045; 80053; 81003; 82550; 82553; 84484; 85025; 93005; 96360; 99284

== ENCOUNTER 2018-10-03 22:24 | Emergency (ER) | payer MEDICAID ==
[~2018-10-03] VITALS: Ht 175.3 cm; Wt 104.3 kg
[~2018-10-03 22:24] MED LIST changes: +NKM
--- NOTE | 2018-10-03 22:52 | NUR ---
ED Nurse Note: pt walked in c/o weakness, increase fatigue, headache x 2wk. Pt is A&Ox4
[2018-10-03 23:00] VITALS: BP 134/91
[2018-10-03 23:34] LABS: APPEARANCE,URINE CLEAR; BILIRUBIN, URINE NEGATIVE (NEGATIVE); COLOR,URINE PALE YELLOW; GLUCOSE, URINE (UA) NEGATIVE (NEGATIVE); KETONES,URINE NEGATIVE (NEGATIVE); LEUKOCYTE ESTERASE ,URINE NEGATIVE (NEGATIVE); NITRITE,URINE NEGATIVE (NEGATIVE); PH,URINE 5 (4.5-8.0); PROTEIN,URINE NEGATIVE (NEGATIVE); UROBILINOGEN,URINE NORMAL MG/DL (0.0-1.0)
[2018-10-03 23:35] LABS: EOSINOPHILS % (AUTO) 2.7 % (0.0-3.0); HEMATOCRIT 45.7 % (42.0-52.0); HEMOGLOBIN 15.8 G/DL (14.2-18.0); LYMPHOCYTES % (AUTO) 28.1 % (20.0-45.0); MEAN CORPUSCULAR VOLUME 80 FL (80-99); MONOCYTES % (AUTO) 6.9 % (1.0-10.0); NEUTROPHILS % (AUTO) 61.3 % (45.0-75.0); PLATELET COUNT 171 K/UL (150-450); RED BLOOD COUNT 5.71 M/UL (4.70-6.10); RED CELL DISTRIBUTION WIDTH 11.6 % (11.6-14.8); WHITE BLOOD COUNT 7.2 K/UL (4.8-10.8)
[2018-10-03 23:48] LABS: ANION GAP 8 mmol/L (5-15); BLOOD UREA NITROGEN 12 mg/dL (7-18); CALCIUM 9.1 MG/DL (8.5-10.1); CARBON DIOXIDE 30 MMOL/L (21-32); CHLORIDE 102 MMOL/L (98-107); POTASSIUM 3.5 MMOL/L (3.5-5.1); SODIUM 140 MMOL/L (136-145)
[2018-10-04 00:01] LABS: ALANINE AMINOTRANSFERASE 52 U/L (12-78); ALBUMIN 4.7 G/DL (3.4-5.0); ALBUMIN/GLOBULIN RATIO 1.6 (1.0-2.7); ALKALINE PHOSPHATASE 44 U/L (46-116); ASPARTATE AMINO TRANSFERASE 21 U/L (15-37); BILIRUBIN,TOTAL 0.5 MG/DL (0.2-1.0); CREATINE KINASE 144 U/L (26-308)
--- NOTE | 2018-10-04 00:23 | NUR ---
ED Nurse Note: Pt resting in bed now, awaiting further orders.
[2018-10-04 01:00] VITALS: BP 134/91
--- NOTE | 2018-10-04 01:00 | NUR ---
ED Nurse Note: Pt awaiting discharge, no complaints at this time, VSS, will continue to monitor.
--- NOTE | 2018-10-04 02:09 | Emergency Room Report ---
History of Present Illness General Chief Complaint: Generalized Weakness Source: Patient, Medical Record Present Illness HPI Patient presents with at least 2 months of worsening fatigue. He also has intermittent chest pressure with exertion where he has to stop and catch his breath. He has been trying to work on decreasing his need for blood pressure medicine by exercising but because of the fatigue he cannot do so. He has been off of antihypertensives now for at least 6 months. He states he had a "mild heart attack" 2 years ago. He denies having any stents. He was not treated with aspirin, Plavix or cholesterol lowering medication at that time. It was noted that his HDL was elevated. Negative treadmill 3 years ago. No fevers, chills, palpitations, nausea, vomiting, diarrhea, dysuria, abdominal pain, depression, visual changes, headache. He is moderate stress at his work. His son is ill with viral gastroenteritis. Allergies: Coded Allergies: No Known Allergies (Unverified , 01/31/13) Patient History Past Medical History: see triage record Social History: Denies: smoking - Former Social History Narrative Reviewed Nursing Documentation: PMH: Agreed; PSxH: Agreed Nursing Documentation-PMH Past Medical History: No History, Except For Hx Cardiac Problems: Yes - "mini heart attack 2016" Hx Hypertension: Yes - doesnt take med Review of Systems All Other Systems: negative except mentioned in HPI Physical Exam Vital Signs Date Time Temp Pulse Resp B/P (MAP) Pulse Ox O2 Delivery O2 Flow Rate FiO2 10/03/18 22:31 98.2 70 18 134/91 (105) 98 Room Air Sp02 EP Interpretation: reviewed, normal General Appearance: well appearing, no apparent distress, GCS 15 Head: normocephalic Eyes: bilateral eye normal inspection, bilateral eye PERRL, bilateral eye EOMI ENT: moist mucus membranes Neck: supple Respiratory: lungs clear, normal breath sounds Cardiovascular #1: regular rate, rhythm Cardiovascular #2: 2+ radial (R) Gastrointestinal: normal inspection, normal bowel sounds, non tender, no mass, non-distended, overweight Musculoskeletal: back normal, gait/station normal, normal range of motion Neurologic: alert, oriented x3, grossly normal Psychiatric: mood/affect normal Skin: normal inspection, warm/dry Medical Decision Making Diagnostic Impression: Primary Impression: Chest pain Qualified Codes: R07.9 - Chest pain, unspecified Additional Impressions: HTN (hypertension) Qualified Codes: I10 - Essential (primary) hypertension Elevated TSH ER Course Patient presents with chest pressure and fatigue several months in duration with noncompliance with antihypertensive medication. Differential includes acute myocardial infarction, acute coronary syndrome, chest wall pain, electrolyte abnormality, hypothyroidism, depression amongst others. Patient is evaluated with EKG, chest x-ray and labs. Patient is treated with aspirin. EKG without injury. Chest x-ray normal heart size no infiltrates. Labs significant for elevated TSH. Troponin negative. Normal CBC. Minimally elevated glucose. Discussed findings with the patient and the need for follow-up. There is no apparent medical emergency present at this time. Patient stable for outpatient observation and treatment. Laboratory Tests Test 10/03/18 22:40 10/03/18 23:10 Urine Color Pale yellow Urine Appearance Clear Urine pH 5 (4.5-8.0) Urine Specific [place] 1.020 (1.005-1.035) Urine Protein Negative (NEGATIVE) Urine Glucose (UA) Negative (NEGATIVE) Urine Ketones Negative (NEGATIVE) Urine Blood 2+ (NEGATIVE) H Urine Nitrite Negative (NEGATIVE) Urine Bilirubin Negative (NEGATIVE) Urine Urobilinogen Normal MG/DL (0.0-1.0) Urine Leukocyte Esterase Negative (NEGATIVE) Urine RBC 2-4 /HPF (0 - 0) H Urine WBC 0 /HPF (0 - 0) Urine Squamous Epithelial Cells None /LPF (NONE/OCC) Urine Bacteria Few /HPF (NONE) Urine Opiates Screen Negative (NEGATIVE) Urine Barbiturates Screen Negative (NEGATIVE) Phencyclidine (PCP) Screen Negative (NEGATIVE) Urine Amphetamines Screen Negative (NEGATIVE) Urine Benzodiazepines Screen Negative (NEGATIVE) Urine Cocaine Screen Negative (NEGATIVE) Urine Marijuana (THC) Screen Negative (NEGATIVE) White Blood Count 7.2 K/UL (4.8-10.8) Red Blood Count 5.71 M/UL (4.70-6.10) Hemoglobin 15.8 G/DL (14.2-18.0) Hematocrit 45.7 % (42.0-52.0) Mean Corpuscular Volume 80 FL (80-99) Mean Corpuscular Hemoglobin 27.6 PG (27.0-31.0) Mean Corpuscular Hemoglobin Concent 34.5 G/DL (32.0-36.0) Red Cell Distribution Width 11.6 % (11.6-14.8) Platelet Count 171 K/UL (150-450) Mean Platelet Volume 9.3 FL (6.5-10.1) Neutrophils (%) (Auto) 61.3 % (45.0-75.0) Lymphocytes (%) (Auto) 28.1 % (20.0-45.0) Monocytes (%) (Auto) 6.9 % (1.0-10.0) Eosinophils (%) (Auto) 2.7 % (0.0-3.0) Basophils (%) (Auto) 1.0 % (0.0-2.0) Erythrocyte Sedimentation Rate 4 MM/HR (0-15) Prothrombin Time 10.7 SEC (9.30-11.50) Prothrombin Time INR 1.0 (0.9-1.1) PTT 27 SEC (23-33) Sodium Level 140 MMOL/L (136-145) Potassium Level 3.5 MMOL/L (3.5-5.1) Chloride Level 102 MMOL/L (98-107) Carbon Dioxide Level 30 MMOL/L (21-32) Anion Gap 8 mmol/L (5-15) Blood Urea Nitrogen 12 mg/dL (7-18) Creatinine 1.0 MG/DL (0.55-1.30) Estimate Glomerular Filtration Rate > 60 mL/min (>60) Glucose Level 135 MG/DL (74-106) H Calcium Level 9.1 MG/DL (8.5-10.1) Total Bilirubin 0.5 MG/DL (0.2-1.0) Aspartate Amino Transferase (AST) 21 U/L (15-37) Alanine Aminotransferase (ALT) 52 U/L (12-78) Alkaline Phosphatase 44 U/L (46-116) L Total Creatine Kinase 144 U/L (26-308) Troponin I 0.000 ng/mL (0.000-0.056) Pro-B-Type Natriuretic Peptide 26 pg/mL (0-125) Total Protein 7.7 G/DL (6.4-8.2) Albumin 4.7 G/DL (3.4-5.0) Globulin 3.0 g/dL Albumin/Globulin Ratio 1.6 (1.0-2.7) Thyroid Stimulating Hormone (TSH) 3.934 uiU/mL (0.358-3.740) EKG Diagnostic Results Rate: normal Rhythm: NSR ST Segments: no acute changes Rhythm Strip Diag. Results EP Interpretation: yes Rhythm: NSR, no PVC's, no ectopy Chest X-Ray Diagnostic Results Chest X-Ray Diagnostic Results : Chest X-Ray Ordered: Yes # of Views/Limited/Complete: 1 View Indication: Other EP Interpretation: Yes Interpretation: no consolidation, no effusion, no pneumothorax Impression: No acute disease Electronically Signed by: Electronically signed by Darwin Krishna MD Last Vital Signs Date Time Temp Pulse Resp B/P (MAP) Pulse Ox O2 Delivery O2 Flow Rate FiO2 10/04/18 01:00 98.4 70 18 134/91 98 Room Air Status: unchanged Disposition: HOME, SELF-CARE Condition: Stable Scripts Triamterene/Hydrochlorothiazide* (DYAZIDE 37.5-25 MG TAB*) 1 Each Tablet 1 TAB ORAL DAILY, #30 TAB Prov: Darwin Krishna MD 10/04/18 Referrals: [facility],REFERRING (PCP) Darwin Krishna MD Oct 04, 2018 02:09
[2018-10-04] MEDS ORDERED: TRIAMTERENE-HC1 EAC5 ORAL (02:10)
--- NOTE | 2018-10-04 02:21 | NUR ---
ER DISCHARGE NOTE: Patient is cleared to be discharged per ERMD, pt is aox4, on room air, with stable vital signs. pt was given dc and prescription instructions, pt was able to verbalize understanding, pt id band and iv site removed without complications. pt is able to ambulate with steady gait. pt took all belongings.
--- NOTE | 2018-10-04 10:09 | Diagnostic Imaging Report ---
Indication: Chest pain Technique: One view of the chest Comparison: 05/22/2018 Findings: Slightly better inspiration currently. The aorta is tortuous. The heart size is normal. Impression: No acute process
--- NOTE | 2018-10-06 13:50 | Cardiology Report ---
APPROVED REPORT EKG Measurement Heart [id number] Normal sinus rhythm Normal ECG
== END 2018-10-04 02:18 | disposition home or self-care (01) ==
LOC: EMR 23:00
DX: R07.9 Chest pain, unspecified (principal); I10 Essential (primary) hypertension; R79.89 Other specified abnormal findings of blood chemistry; I25.2 Old myocardial infarction; Z87.891 Personal history of nicotine dependence
CPT/HCPCS: 36415; 71045; 80053; 80307; 81003; 82550; 83880; 84443; 84484; 85025; 85610; 85651; 85730; 93005; 99283

== ENCOUNTER 2018-10-25 15:53 | Emergency (ER) | payer MEDICAID ==
[~2018-10-25] VITALS: Ht 176.5 cm; Wt 104.3 kg
[~2018-10-25 15:53] MED LIST changes: +TRIAMTERENE-HC1 EAC5 ORAL
[2018-10-25] MEDS ORDERED: NKM (16:01)
--- NOTE | 2018-10-25 16:11 | NUR ---
ED Nurse Note: Pt started to experience flu-like symptoms : coughing with yellowish sputum, bodyache, headache, sorethroat x Sunday10/22/18. Pain 11/30 narayan. AOx4, VSS narayan. Will cont to monitor.
[2018-10-25 16:13] VITALS: BP 128/74
--- NOTE | 2018-10-25 16:37 | Emergency Room Report ---
History of Present Illness General Chief Complaint: Flu Like Symptoms Source: Medical Record Present Illness HPI 48-year-old male with no significant past medical history here complaining of 4 days of sore throat, congestion and cough. Denies wheezing and phlegm production. Patient went to his primary care physician 3 days ago and was diagnosed with viral pharyngitis. Patient has not been taking any medication for his symptoms. Patient reports that he used to be a heavy tobacco smoker however he quit 4 years ago. Denies abdominal pain, nausea vomiting, recent travel. Patient complains of minor fatigue however denies generalized weakness. Allergies: Coded Allergies: No Known Allergies (Unverified , 01/31/13) Patient History Past Medical History: see triage record Past Surgical History: unable to obtain Pertinent Family History: none Social History: Reports: smoking - ex tobacco smoke Immunizations: UTD Reviewed Nursing Documentation: PMH: Agreed; PSxH: Agreed Nursing Documentation-PMH Past Medical History: No History, Except For Hx Cardiac Problems: Yes - "mini heart attack 2016" Hx Hypertension: Yes - doesnt take med Review of Systems All Other Systems: negative except mentioned in HPI Physical Exam Vital Signs Date Time Temp Pulse Resp B/P (MAP) Pulse Ox O2 Delivery O2 Flow Rate FiO2 10/25/18 15:59 98.1 81 18 134/79 (97) 96 Room Air Sp02 EP Interpretation: reviewed, normal General Appearance: normal inspection, well appearing, no apparent distress Head: normocephalic, atraumatic Eyes: bilateral eye normal inspection, bilateral eye PERRL ENT: no angioedema, TMs + canals normal, tonsillar swelling, pharyngeal erythema Neck: normal inspection, supple, thyroid normal, no meningismus, no bony tend Respiratory: normal inspection, chest non-tender, lungs clear, normal breath sounds, no rhonchi, no respiratory distress, no wheezing Cardiovascular #1: normal inspection, no edema, no murmur Gastrointestinal: normal inspection, soft, no mass Musculoskeletal: normal inspection, back normal Neurologic: normal inspection, alert, oriented x3, responsive Psychiatric: normal inspection, judgement/insight normal, memory normal Skin: no rash, palpation normal Lymphatic: normal inspection, no adenopathy Medical Decision Making PA Attestation All my diagnosis and treatment plans were reviewed ad discussed with my supervising physician Dr. Srivastava Diagnostic Impression: Primary Impression: Tonsillitis ER Course 48-year-old male with no significant past medical history here complaining of 4 days of sore throat, congestion and cough. Denies wheezing and phlegm production. Patient went to his primary care physician 3 days ago and was diagnosed with viral pharyngitis. Patient has not been taking any medication for his symptoms. Patient reports that he used to be a heavy tobacco smoker however he quit 4 years ago. Denies abdominal pain, nausea vomiting, recent travel. Patient complains of minor fatigue however denies generalized weakness. Ddx considered but are not limited to: strep pharyngitis, URI, tonsilitis, peritonsillar absacess, influneza Vital signs: are WNL, pt. is afebrile H&PE are most consistent with: Tonsillitis ORDERS: Azithromycin, Phenergan, albuterol ED INTERVENTIONS: None required at this time. DISCHARGE: At this time pt. is stable for d/c to home. Will provide printed patient care instructions, and any necessary prescriptions. Care plan and follow up instructions have been discussed with the patient prior to discharge. Follow-up with a primary care provider. Due to duration of symptoms patient to be empirically treated with antibiotics. Last Vital Signs Date Time Temp Pulse Resp B/P (MAP) Pulse Ox O2 Delivery O2 Flow Rate FiO2 10/25/18 16:13 98.1 87 20 128/74 99 Room Air Disposition: HOME, SELF-CARE Condition: Stable Scripts Albuterol Sulfate* (PROAIR HFA*) 8.5 Gm Hfa.aer.ad 2 PUFFS INH Q6H, #8.5 GM 0 Refills Prov: Hubert Hoyt 10/25/18 Promethazine Hcl (PROMETHAZINE HCL*) 6.25 Mg/5 Ml Syrup 5 ML ORAL Q6H, #120 ML 0 Refills Prov: Hubert Hoyt 10/25/18 Azithromycin* (ZITHROMAX*) 250 Mg Tablet 250 MG ORAL DAILY, #6 TAB 0 Refills Take two tables once daily for 1 day, then one tablet once daily for 4 days. Prov: Hubert Hoyt 10/25/18 Patient Instructions: Tonsillitis, [id number] Hubert Hoyt Oct 25, 2018 16:36
[2018-10-25] MEDS ORDERED: ZITHROMAX250 MG ORAL (16:38)
[2018-10-25] MEDS ORDERED: PROAIR HFA8.5 GM INH (16:38)
[2018-10-25] MEDS ORDERED: PROMETHAZI6.25 MG/1 ORAL (16:38)
[2018-10-25 16:52] VITALS: BP 128/74
--- NOTE | 2018-10-25 16:52 | NUR ---
ER DISCHARGE NOTE: Patient is cleared to be discharged per MARGARITA ONTIVEROS, pt is aox4, on room air, with stable vital signs. pt was given dc and prescription instructions, pt was able to verbalize understanding, pt id band removed without complications. pt is able to ambulate with steady gait. pt took all belongings.
== END 2018-10-25 16:52 | disposition home or self-care (01) ==
LOC: EMR 16:35
DX: J03.90 Acute tonsillitis, unspecified (principal); I10 Essential (primary) hypertension
CPT/HCPCS: 99283